=== PATIENT | female | born 1990 | race Caucasian/White ===

== ENCOUNTER 2021-10-11 10:42 | Emergency (ER) | payer OTHER, SELFPAY ==
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
[2021-10-11 10:47] VITALS: BP 137/100; PULSE 116; RESP 19; TEMP 36.6; O2SAT 99; BMI 26.5
[2021-10-11 13:02] LABS: UPreg QC Valid YES; Urine Pregnancy NEGATIVE (NEGATIVE)
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
== END 2021-10-11 15:18 | disposition left against medical advice (07) ==
PROVIDERS: Physician Assistant; Emergency Provider Emergency Medicine; PCP Physician Assistant Medical
DX: T14.90XA Injury, unspecified, initial encounter (principal); R51.9 Headache, unspecified; H57.11 Ocular pain, right eye; M54.2 Cervicalgia; M54.9 Dorsalgia, unspecified; F41.9 Anxiety disorder, unspecified; Y04.2XXA Assault by strike against or bumped into by another person, initial encounter; Y93.9 Activity, unspecified; Y92.9 Unspecified place or not applicable; Y99.9 Unspecified external cause status
CPT/HCPCS: 70450; 70486; 72125; 81025; 99283; 99284

== ENCOUNTER 2022-02-25 02:08 | Emergency (ER) | payer OTHER, SELFPAY ==
[2022-02-25 02:22] VITALS: PULSE 86; RESP 28; TEMP 36.7; O2SAT 96; BMI 23.8
--- NOTE | 2022-02-25 04:10 | ED.ANXIETY ---
HPI - Anxiety General Chief Complaint: Anxiety Stated Complaint: anxiety Time Seen by Provider: 02/25/22 04:10 Source: patient and family Mode of arrival: ambulatory History of Present Illness HPI narrative: 31-year-old female with history of anxiety and depression comes in stating that she decided to stop her medications cold turkey 1 week ago and describes her medication is being Zoloft, Ambien as well as lorazepam. She states that since that time she feels like she is going to crawl out of her skin but denies any suicidal ideation. Otherwise, she denies any fever, chills, diarrhea or urinary symptoms. Related Data Allergies Allergy/AdvReac Type Severity Reaction Status Date / Time No Known Allergies Allergy Unverified 10/11/21 12:31 Review of Systems Review of Systems: Pertinent positives and negatives as stated in HPI 10 point review of systems is otherwise negative. PMFSH Past Medical History Source: nursing notes reviewed Medical History Anxiety Social History Social History Advance Directives: No Advance Directives Information Provided: Yes Physical Exam Vital Signs: Vital Signs: Last Vital Signs Temp 98.1 F 02/25/22 02:22 Pulse 86 02/25/22 02:22 Resp 28 H 02/25/22 02:22 Pulse Ox 96 02/25/22 02:22 BMI result Body Mass Index 23.8 VITAL SIGNS: Reviewed. GENERAL: Well developed, well nourished, in no acute distress. HEAD: Normocephalic/atraumatic EYES: PERRLA, EOMI EARS: Ext canals without abnormality OROPHARYNX: no oral lesions noted, posterior pharynx clear LUNGS: Normal breath sounds. No adventitious sounds or accessory muscle use. SpO2<96> CARDIOVASCULAR: Regular rate and rhythm without noted murmurs ABDOMEN: Soft, non-tender, non-distended with bowel sounds. MUSCULOSKELETAL: No tenderness, deformities, or effusions noted on gross inspection. EXTREMITIES: No cyanosis, clubbing or edema. SKIN: Inspection of the skin reveals no rashes NEUROLOGIC: Alert and oriented x 4. Strength and sensation to light touch were grossly intact x 4. Course Course Course Narrative: 31-year-old female with history and clinical presentation consistent with precipitous stopping of her psychiatric medications and now coming in with withdrawal symptoms. It was explained that we would needed do some basic labs as well as an EKG. However, she was reassured that we would provide her with some assistance with her symptoms. I was informed by the nursing staff that patient eloped. Discharge Plan Discharge Clinical Impression: Acute anxiety Patient Disposition: Elopement
--- NOTE | 2022-02-25 05:02 | PC.NURSE ---
pt left before being medicated and reviewing discharge instructions. provider aware.
== END 2022-02-25 05:03 | disposition left against medical advice (07) ==
PROVIDERS: Emergency Provider Student in an Organized Health Care Education/Training Program; PCP Physician Assistant Medical
DX: F41.9 Anxiety disorder, unspecified (principal); F32.A Depression, unspecified; Z91.14 Patient's other noncompliance with medication regimen
CPT/HCPCS: 99281; 99282